=== PATIENT | female | born 1960 | race Caucasian/White ===

== ENCOUNTER 2016-06-07 05:20 | Emergency (ER) | payer MEDICARE, MEDICAID ==
[2016-06-07 05:45] VITALS: BP 121/78
== END 2016-06-07 05:45 | disposition left against medical advice (07) ==
LOC: ER 05:20
DX: Z53.21 Procedure and treatment not carried out due to patient leaving prior to being seen by health care provider (principal)

== ENCOUNTER 2016-10-13 12:25 | Emergency (ER) | payer MEDICARE, MEDICAID ==
[2016-10-13] MEDS ORDERED: HYDROMORPHONE HCL INJ/PF 2 MG/ML AMPULE IV ONE (12:46)
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
[2016-10-13 14:17] LABS: ABSOLUTE EOSINOPHILS # (AUTO) 0.3 10^3/uL (0.0-0.6); ABSOLUTE LYMPHOCYTES (AUTO) 2.1 10^3/uL (0.5-4.7); ABSOLUTE MONOCYTES (AUTO) 0.4 10^3/uL (0.1-1.4); ABSOLUTE NEUT (AUTO) 3.3 10^3/uL (1.7-8.2); BASOPHILS % (AUTO) 0.7 % (0-2); EOSINOPHILS % (AUTO) 4.9 % (0-6); HEMATOCRIT 36.5 % (36.0-47.0); HGB HCT DIFFERENCE -0.5; LYMPHOCYTES % (AUTO) 34.4 % (13-45); MEAN CORPUSCULAR HEMOGLOBIN 27.2 pg (27.0-33.4); MEAN CORPUSCULAR HGB CONC 32.9 g/dL (32.0-36.0); MEAN CORPUSCULAR VOLUME 83 fl (80-97); RED BLOOD COUNT 4.42 10^6/uL (3.72-5.28); RED CELL DISTRIBUTION WIDTH 15.7 % (11.5-14.0); WHITE BLOOD COUNT 6.2 10^3/uL (4.0-10.5)
[2016-10-13 14:39] LABS: ALANINE AMINOTRANSFERASE 27 U/L (9-52); ALBUMIN 3.9 g/dL (3.5-5.0); ALKALINE PHOSPHATASE 69 U/L (38-126); ANION GAP 9 (5-19); ASPARTATE AMINO TRANSFERASE 20 U/L (14-36); BILIRUBIN,DIRECT 0.4 mg/dL (0.0-0.4); BILIRUBIN,TOTAL 0.5 mg/dL (0.2-1.3); BLOOD UREA NITROGEN 14 mg/dL (7-20); CALCIUM 9.4 mg/dL (8.4-10.2); CARBON DIOXIDE 27 mmol/L (22-30); CHLORIDE 104 mmol/L (98-107); CREATININE RESULT 0.97 mg/dL (0.52-1.25); GLUCOSE 111 mg/dL (75-110); POTASSIUM 4.4 mmol/L (3.6-5.0); SODIUM 140.4 mmol/L (137-145); TOTAL PROTEIN 6.7 g/dL (6.3-8.2)
[2016-10-13] MEDS ORDERED: NORMAL SALINE 1000 ML 1,000 ML IV PRN (14:57)
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
[2016-10-13 19:46] VITALS: BP 106/68
== END 2016-10-13 17:50 | disposition home or self-care (01) ==
LOC: ER 12:25
DX: R07.81 Pleurodynia (principal); W19.XXXA Unspecified fall, initial encounter; Y92.009 Unspecified place in unspecified non-institutional (private) residence as the place of occurrence of the external cause; R05 Cough; J44.9 Chronic obstructive pulmonary disease, unspecified; R06.02 Shortness of breath; R11.2 Nausea with vomiting, unspecified; R19.7 Diarrhea, unspecified; E10.9 Type 1 diabetes mellitus without complications; R29.6 Repeated falls; I10 Essential (primary) hypertension; F17.200 Nicotine dependence, unspecified, uncomplicated; D68.2 Hereditary deficiency of other clotting factors; Z79.01 Long term (current) use of anticoagulants; Z88.8 Allergy status to other drugs, medicaments and biological substances; Z88.6 Allergy status to analgesic agent; Z88.5 Allergy status to narcotic agent
CPT/HCPCS: 99284; 96361; 96374; 36415; 85025; 80053; 71275; J1170; J7030

== ENCOUNTER 2017-02-22 20:08 | Emergency (ER) | payer OTHER, MEDICARE, MEDICAID ==
[2017-02-22] MEDS ORDERED: ONDANSETRON 4 MG TAB.RAPDIS PO ONE (20:55)
[2017-02-22] MEDS ORDERED: ACETAMINOPHEN 325 MG TABLET PO ONE (20:55)
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
[2017-02-22] MEDS ORDERED: OXYCODONE HCL IR 5 MG TABLET PO ONE (22:19)
[2017-02-22 22:48] VITALS: BP 109/70
== END 2017-02-22 22:48 | disposition home or self-care (01) ==
LOC: ER 20:08
DX: M54.2 Cervicalgia (principal); R51 Headache; M79.602 Pain in left arm; V49.40XA Driver injured in collision with unspecified motor vehicles in traffic accident, initial encounter; M79.7 Fibromyalgia; D68.51 Activated protein C resistance; I10 Essential (primary) hypertension; J44.9 Chronic obstructive pulmonary disease, unspecified; E10.9 Type 1 diabetes mellitus without complications; F41.9 Anxiety disorder, unspecified; Z79.01 Long term (current) use of anticoagulants; Z88.8 Allergy status to other drugs, medicaments and biological substances; Z88.6 Allergy status to analgesic agent; Z88.5 Allergy status to narcotic agent
CPT/HCPCS: 99284; 73060; 70450; 72125; S0119

== ENCOUNTER 2018-08-06 12:58 | Emergency (ER) | payer MEDICAID, MEDICARE ==
[2018-08-06] MEDS ORDERED: LACTULOSE SYRUP 20 GM/30 ML UDCUP PO ONE (13:19)
--- NOTE | 2018-08-06 13:21 | ER Document Report ---
ED Medical Screen (RME) - General Chief Complaint: Rectal Bleeding Stated Complaint: RECTAL BLEEDING Time Seen by Provider: 08/06/18 13:13 Primary Care Provider: KAMALA NEWBY MD [Primary Care Provider] - Follow up as needed Notes: 57-year-old female to the emergency department chief complaint of left-sided weakness, abnormal feeling in her head, constipation and rectal bleeding. Patient states that she thinks she had a stroke 2 weeks ago but has not been seen. Patient is on blood thinners for factor V Leiden and previous DVTs. I have greeted and performed a rapid initial assessment of this patient. A c omprehensive ED assessment and evaluation of the patient, analysis of test results and completion of the medical decision making process will be conducted by additional ED providers. TRAVEL OUTSIDE OF THE [place] IN LAST 30 DAYS: No - Related Data Allergies/Adverse Reactions: lithium [[facility]] Allergy (Unknown, Verified 08/06/18 13:00) atorvastatin calcium [From Lipitor] Allergy (Verified 08/06/18 13:00) bupropion HCl [From Wellbutrin] Allergy (Verified 08/06/18 13:00) fluoxetine HCl [From Prozac] Allergy (Verified 08/06/18 13:00) ibuprofen [From Motrin] Allergy (Verified 08/06/18 13:00) ketorolac tromethamine [From Toradol] Allergy (Verified 08/06/18 13:00) morphine [Morphine] Allergy (Verified 08/06/18 13:00) nalbuphine HCl [From Nubain] Allergy (Verified 08/06/18 13:00) simvastatin [From Zocor] Allergy (Verified 08/06/18 13:00) Past Medical History - Past Medical History Cardiac Medical History: Reports: Hx Hypercholesterolemia, Hx Hypertension Pulmonary Medical History: Reports: Hx Asthma, Hx COPD Neurological Medical History: Denies: Hx Seizures Endocrine Medical History: Reports: Hx Diabetes Mellitus Type 1 Renal/ Medical History: Reports: Hx Kidney Stones. 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
--- NOTE | 2018-08-06 13:51 | RADIOLOGY REPORT (SQ) ---
EXAM DESCRIPTION: CT HEAD WITHOUT COMPLETED DATE/TIME: 08/06/2018 1:37 pm REASON FOR STUDY: left sided weakness x2wk COMPARISON: 02/22/2017 TECHNIQUE: Axial images acquired through the brain without intravenous contrast. Images reviewed wi th bone, brain and subdural windows. Additional sagittal and coronal reconstructions were generated. Images stored on PACS. All CT scanners at this facility use dose modulation, iterative reconstruction, and/or weight based d osing when appropriate to reduce radiation dose to as low as reasonably achievable (ALARA). [facility]: Dose Right [facility]: CareDose [facility]: Dose Right [facility]: Teradose 4D [facility]: Smart GoWorkaBit RADIATION DOSE: CT Rad equipment meets quality standard of care and radiation dose reduction techniq ues were employed. CTDIvol: 53.2 mGy. DLP: 964 mGy-cm. LIMITATIONS: None. FINDINGS: VENTRICLES: Normal size and contour. CEREBRUM: No masses. No hemorrhage. No midline shift. No evidence for acute infarction. Normal gra y/white matter differentiation. No areas of low density in the white matter. CEREBELLUM: No masses. No hemorrhage. No alteration of density. No evidence for acute infarction. EXTRAAXIAL SPACES: No fluid collections. No masses. ORBITS AND GLOBE: No intra- or extraconal masses. Normal contour of globe without masses. CALVARIUM: No fracture. PARANASAL SINUSES: Slight deviation of the nasal septum to the right of the midline. No fluid or mu cosal thickening. SOFT TISSUES: No mass or hematoma. OTHER: No other significant finding. IMPRESSION: 1. No significant interval changes since the prior study dated 02/22/2017. No acute int racranial abnormality. EVIDENCE OF ACUTE STROKE: NO. COMMENT: Quality ID # [id number]: Final reports with documentation of one or more dose reduction techniques (e.g., Automated exposure control, adjustment of the mA and/or kV according to patient size, use of iterative reconstruction technique) TECHNICAL DOCUMENTATION: JOB ID: [id number] [employer]- All Rights Reserved Reading location - IP/workstation name: [email or web address]
--- NOTE | 2018-08-06 13:58 | RADIOLOGY REPORT (SQ) ---
EXAM DESCRIPTION: ACUTE ABDOMEN SERIES COMPLETED DATE/TIME: 08/06/2018 1:46 pm REASON FOR STUDY: constipation, rectal bleedinng COMPARISON: Plain films of the abdomen dated 11/26/2007 NUMBER OF VIEWS: Three views. TECHNIQUE: Frontal chest, supine abdomen and upright/decubitus abdomen radiographic images acquired. LIMITATIONS: None. FINDINGS: CHEST: Lungs clear of infiltrates. FREE AIR: None. No abnormal gas collections. BOWEL GAS PATTERN: Nonobstructive pattern. Slightly dilated small bowel loops midline right hemipelv is. A few small air-fluid levels in the same location. CALCIFICATIONS: No suspicious calcifications. HARDWARE: Multiple surgical anchors midline pelvis, and fine wire surgical sutures in the right gisell pelvis. Multiple surgical metallic clips in the right mid and lower abdomen. SOFT TISSUES: No gross mass or suggestion of organomegaly. BONES: No acute fracture. Levoconvex scoliosis of the lumbar spine. No worrisome bone lesions. OTHER: No other significant finding. IMPRESSION: 1. No acute pulmonary findings. 2. Slightly dilated small bowel loops midline right hemipelvis with a few small air-fluid levels. T hese findings may be on the basis of an ileus. TECHNICAL DOCUMENTATION: JOB ID: [id number] [employer]- All Rights Reserved Reading location - IP/workstation name: [email or web address]
[2018-08-06 15:57] LABS: APPEARANCE,URINE CLOUDY; BILIRUBIN,URINE NEGATIVE (NEGATIVE); COLOR,URINE YELLOW; GLUCOSE, URINE NEGATIVE (NEGATIVE); KETONES,URINE NEGATIVE (NEGATIVE); LEUKOCYTE ESTERASE,URINE MODERATE (NEGATIVE); NITRITE,URINE NEGATIVE (NEGATIVE); PROTEIN,URINE NEGATIVE (NEGATIVE); URINE SPECIFIC GRAVITY 1.009; UROBILINOGEN,URINE NEGATIVE mg/dL (<2.0)
[2018-08-06 17:09] LABS: ABSOLUTE BASOPHILS # (AUTO) 0.1 10^3/uL (0.0-0.2); ABSOLUTE LYMPHOCYTES (AUTO) 2.1 10^3/uL (0.5-4.7); ABSOLUTE MONOCYTES (AUTO) 0.5 10^3/uL (0.1-1.4); ABSOLUTE NEUT (AUTO) 3.5 10^3/uL (1.7-8.2); BASOPHILS % (AUTO) 0.8 % (0-2); EOSINOPHILS % (AUTO) 0.5 % (0-6); HEMATOCRIT 40.1 % (36.0-47.0); HEMOGLOBIN 14.1 g/dL (12.0-15.5); LYMPHOCYTES % (AUTO) 34.8 % (13-45); MEAN CORPUSCULAR HEMOGLOBIN 28.6 pg (27.0-33.4); MEAN CORPUSCULAR HGB CONC 35.3 g/dL (32.0-36.0); MEAN CORPUSCULAR VOLUME 81 fl (80-97); MONOCYTES % (AUTO) 7.4 % (3-13); PLATELET COUNT 171 10^3/uL (150-450); RED BLOOD COUNT 4.95 10^6/uL (3.72-5.28); RED CELL DISTRIBUTION WIDTH 15.4 % (11.5-14.0); SEGMENTED NEUTROPHILS % (AUTO) 56.5 % (42-78); TOTAL CELLS COUNTED % (AUTO) 100 %; WHITE BLOOD COUNT 6.2 10^3/uL (4.0-10.5)
[2018-08-06 17:17] LABS: INTERNATIONAL RATION (INR) 1.33; PROTHROMBIN TIME 17.1 SEC (11.4-15.4)
[2018-08-06 17:18] LABS: PARTIAL THROMBOPLASTIN TIME 34.4 SEC (23.5-35.8)
[2018-08-06] MEDS ORDERED: NORMAL SALINE 1000 ML 1,000 ML IV ONE (17:19)
--- NOTE | 2018-08-06 17:22 | ER Document Report ---
ED General - General Chief Complaint: Rectal Bleeding Stated Complaint: RECTAL BLEEDING Time Seen by Provider: 08/06/18 13:13 Primary Care Provider: KAMALA NEWBY MD [Primary Care Provider] - Follow up as needed Notes: Patient is a 57-year-old female who presents to the emergency department with a chief complaint of rectal bleeding. Her symptoms started this morning. She was picking at her stool earlier today to help facilitate a bowel movement, and noticed she was bleeding from her rectum. She states that she was able to get some stool out, but not everything. She still feels impacted. About 2 weeks a go she was also feeling she had, "strokelike symptoms." She also states that she has had incontinence since that period of having "strokelike" symptoms. He denies any weakness, slurred speech, diplopia. She states that she has had some nausea, but no active vomiting. She is currently on Xarelto. She has history of hypertension, diabetes, and gangrene. TRAVEL OUTSIDE OF THE [place] IN LAST 30 DAYS: No - Related Data Allergies/Adverse Reactions: lithium [[place]] Allergy (Unknown, Verified 08/06/18 13:00) atorvastatin calcium [From Lipitor] Allergy (Verified 08/06/18 13:00) bupropion HCl [From Wellbutrin] Allergy (Verified 08/06/18 13:00) fluoxetine HCl [From Prozac] Allergy (Verified 08/06/18 13:00) ibuprofen [From Motrin] Allergy (Verified 08/06/18 13:00) ketorolac tromethamine [From Toradol] Allergy (Verified 08/06/18 13:00) morphine [Morphine] Allergy (Verified 08/06/18 13:00) nalbuphine HCl [From Nubain] Allergy (Verified 08/06/18 13:00) simvastatin [From Zocor] Allergy (Verified 08/06/18 13:00) Past Medical History - Social History Smoking Status: Current Every Day Smoker Family History: None Patient has suicidal ideation: No Patient has homicidal ideation: No - Past Medical History Cardiac Medical History: Reports: Hx Hypercholesterolemia, Hx Hypertension Pulmonary Medical History: Reports: Hx Asthma, Hx COPD Neurological Medical History: Denies: Hx Seizures Endocrine Medical History: Reports: Hx Diabetes Mellitus Type 1 Renal/ Medical History: Reports: Hx Kidney Stones. 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 Denies recent unintentional weight loss. Denies fever, chills, or sweats. EENT: Denies eye, ear, throat, or mouth pain, discharge, or symptoms. Denies nasal or sinus congestion. CARDIOVASCULAR: Denies chest pain. RESPIRATORY: Denies shortness of breath, cough, congestion, difficulty breathing, or wheezing. GASTROINTESTINAL: See HPI GENITOURINARY: Denies difficulty urinating, burning, blood in urine, urgency or frequency. MUSCULOSKELETAL: Denies neck and back pain. Denies joint pain or swelling. SKIN: Denies rash, itchiness, or lesions HEMATOLOGIC : Denies easy bruising or bleeding. LYMPHATIC: Denies swollen, painful, enlarged glands. NEUROLOGICAL: See HPI PSYCHIATRIC: Denies stress, anxiety, alteration in sleep patterns, or depression. All other systems reviewed and negative. Physical Exam - Vital signs Vitals: Temp Pulse Resp BP Pulse Ox 99.5 F 97 16 145/81 H 97 08/06/18 13:07 08/06/18 13:07 08/06/18 13:07 08/06/18 13:07 08/06/18 13:07 - Notes Notes: PHYSICAL EXAMINATION: GENERAL: Appears well, healthy, well-nourished, no acute distress. HEAD: Normocephalic, atraumatic. EYES: PERRL, conjunctiva normal, all extraocular movements intact, sclera nonicteric ENT: Moist mucous membranes. NECK: Supple, no noticeable swelling, redness, rash. Normal range of motion. LUNGS: Equal breath sounds bilaterally and clear to auscultation. No wheezes rales or rhonchi. CARDIOVASCULAR: S1-S2, regular rate, regular rhythm. Radial pulses 2+, normal. ABDOMEN: Normoactive bowel sounds. Soft, nontender, no guarding, no rebound tenderness, and no masses palpated. EXTREMITIES: Normal strength and range of motion, no pitting or edema. No c yanosis. NEUROLOGICAL: Moves all extremities upon command. Strength 5/5 in all extremities. PSYCH: Normal mood, normal affect. SKIN: Warm, dry. No rash, lesions, ulcerations noted. Normal skin turgor. Rectal: Stool noted. Hemorrhoids noted. Course - Re-evaluation Re-evalutation: 08/06/18 18:[address] Barr, the surgical list brush fabrication supervisor and he agrees that the patient does need an enema and the current regimen we are giving her is correct. I have discussed with the patient that she needs to increase fiber in her diet. She does have some a moderate amount of stool on her left leukocytes in her urine, I will treat her for urinary tract infection because she is having some confusion. This may be due to her incontinence for the past 2 weeks. Although her occult stool was positive, I visualized her stool after her enema and there were streaks of blood in her urine, suggestive of hemorrhoids. Her chemistry is unremarkable. She does not have she is not anemic. Her abdominal x-ray shows a possible ileus, but I suspect this is more constipation. Her CT of the head is negative for any acute findings. There is no comment on subacute/chronic changes. 08/06/18 19:[address] Newby in regards to the patient's case. He would like to see the patient in the office tomorrow. I have given instructions to the patient's neighbor, who is her transport truck driver. They both verbalized understanding. Verbal discharge instructions were given to the patient. They verbalized understanding. They are stable for discharge. - Vital Signs Vital signs: Temp Pulse Resp BP Pulse Ox 97.8 F 66 17 160/92 H 99 08/06/18 19:39 08/06/18 19:39 08/06/18 19:39 08/06/18 19:39 08/06/18 19:39 - Laboratory Result Diagrams: 08/06/18 16:58 08/06/18 16:58 Laboratory results interpreted by me: 08/06/18 08/06/18 08/06/18 15:22 16:58 16:58 RDW 15.4 H PT 17.1 H Potassium Chloride Calcium Urine Blood MODERATE H Ur Leukocyte Esterase MODERATE H 08/06/18 16:58 RDW PT Potassium 3.4 L Chloride 108 H Calcium 10.5 H Urine Blood Ur Leukocyte Esterase Discharge - Discharge Clinical Impression: Rectal bleeding Constipation Qualifiers: Constipation type: unspecified constipation type Qualified Code(s): K59.00 - Constipation, unspecified Urinary tract infection Qualifiers: Urinary tract infection type: acute cystitis Hematuria presence: with hematuria Qualified Code(s): N30.01 - Acute cystitis with hematuria Condition: Stable Disposition: HOME, SELF-CARE Additional Instructions: You were seen today in the emergency department for strokelike symptoms that happened about [address] Newby would like to see you in the office tomorrow. You also have had some bleeding from your rectum. Your exam is consistent with constipation and hemorrhoids. Please follow-up with Dr. Newby in regards to the this issue. Please take the constipation medications you are ready to take at home. Also, when you are financially able to add fiber to your diet, please eat more fruits and vegetables that are high in fiber to help you have normal bowel movements. You take MiraLAX, 1 capful every day to help with normal bowel movements. Do not eat white bread only anymore, as this makes constipation worse. You also have a urinary tract infection. You will be placed on antibiotics. Please take all your antibiotics as prescribed. If you have worsening symptoms, more constipation, continue to vomit, or have any symptoms that are worrisome to you, return to the emergency department. Prescriptions: Cephalexin [Keflex] 500 mg PO BID #14 capsule Referrals: KAMALA NEWBY MD [Primary Care Provider] - Follow up as needed
[2018-08-06 17:27] LABS: ALANINE AMINOTRANSFERASE 18 U/L (9-52); ALBUMIN 4.8 g/dL (3.5-5.0); ALKALINE PHOSPHATASE 56 U/L (38-126); ANION GAP 11 (5-19); ASPARTATE AMINO TRANSFERASE 21 U/L (14-36); BILIRUBIN,DIRECT 0.3 mg/dL (0.0-0.4); BILIRUBIN,TOTAL 0.5 mg/dL (0.2-1.3); BLOOD UREA NITROGEN 11 mg/dL (7-20); CALCIUM 10.5 mg/dL (8.4-10.2); CARBON DIOXIDE 24 mmol/L (22-30); CHLORIDE 108 mmol/L (98-107); GLUCOSE 104 mg/dL (75-110); POTASSIUM 3.4 mmol/L (3.6-5.0); SODIUM 142.8 mmol/L (137-145); TOTAL PROTEIN 7.2 g/dL (6.3-8.2)
--- NOTE | 2018-08-06 19:11 | EKG REPORT ---
SEVERITY:- BORDERLINE ECG - SINUS RHYTHM BORDERLINE T WAVE ABNORMALITIES : Confirmed by: Dora Novoa MD 06-Aug-2018 19:11:16
[2018-08-06 20:03] VITALS: BP 160/92
== END 2018-08-06 20:03 | disposition home or self-care (01) ==
LOC: ER 12:58
DX: K62.5 Hemorrhage of anus and rectum (principal); K59.00 Constipation, unspecified; N30.01 Acute cystitis with hematuria; K64.9 Unspecified hemorrhoids; R32 Unspecified urinary incontinence; R41.0 Disorientation, unspecified; R11.0 Nausea; I10 Essential (primary) hypertension; E10.9 Type 1 diabetes mellitus without complications; J44.9 Chronic obstructive pulmonary disease, unspecified; F17.200 Nicotine dependence, unspecified, uncomplicated; Z79.01 Long term (current) use of anticoagulants; Z88.8 Allergy status to other drugs, medicaments and biological substances; Z88.6 Allergy status to analgesic agent; Z88.5 Allergy status to narcotic agent
CPT/HCPCS: 93005; 99284; 36415; 85025; 85610; 85730; 80053; 81001; 74022; 70450; 93010; A9270; J7030

== ENCOUNTER → 2019-04-01 | Outpatient (CLI) | payer MEDICARE, MEDICAID ==
--- NOTE | 2019-04-01 16:38 | RADIOLOGY REPORT (SQ) ---
EXAM DESCRIPTION: KNEE RIGHT 2 VIEWS COMPLETED DATE/TIME: 04/01/2019 4:26 pm REASON FOR STUDY: RT KNEE PAIN M25.561 PAIN IN RIGHT KNEE COMPARISON: None. NUMBER OF VIEWS: Four views. TECHNIQUE: AP, lateral, and both oblique radiographic images acquired of the right knee. LIMITATIONS: None. FINDINGS: MINERALIZATION: Normal. BONES: No acute fracture or dislocation. No worrisome bone lesions. Tiny medial/ lateral and patell ofemoral osteophytes. JOINT: No effusion. SOFT TISSUES: No soft tissue swelling. No radio-opaque foreign body. OTHER: No other significant finding. IMPRESSION: NEGATIVE STUDY OF THE RIGHT KNEE. NO RADIOGRAPHIC EVIDENCE OF ACUTE INJURY. TECHNICAL DOCUMENTATION: JOB ID: [id number] [employer]- All Rights Reserved Reading location - IP/workstation name: [email or web address]
== END ==
LOC: OD 16:08
PROVIDERS: ATTEND Nurse Practitioner Family
DX: M25.561 Pain in right knee (principal)

== ENCOUNTER → 2019-11-05 | Outpatient (CLI) | payer MEDICARE, MEDICAID ==
--- NOTE | 2019-11-05 13:08 | ER RDC ASSESSMENT REPORT ---
Intake - In the Last 14 days Have you traveled outside [place]?: No Have you been in close contact with someone CONFIRMED: No Worked in Healthcare?: No - Symptoms Subjective Fever([place] feverish): Yes --How many day(s)?: Reports started a fever yesterday was told it was 100. None today Chills: No Muscule Aches: No Runny Nose: No Cough (New or worsening chronic cough): Yes --How many day(s)?: Has a chronic cough since May started to have wheezing HX COPD Shortness of breath: Yes Nausea or Vomiting: No Headache: Yes --How many day(s)?: Headache yesterday, gone today Abdominal Pain: No Diarrhea(3 or more loose stools in last 24 hours): No - Do you have any of the following Chronic lung disease: Asthma or emphysema or COPD: Yes Chronic Lung Disease Comment: Reports a history of COPD complains of a cough that has been persistent since May smokes uses 3 inhalers and a nebulizer. Attempted to be seen at commercial real estate agent yesterday Cystic Fibrosis: No Diabetes: Yes Diabetes Comment: Type II DM High Blood Pressure: Yes Cardiovascular Disease: Yes Chronic Kidney Disease: No Chronic Liver Disease: No Chronic blood disorder like Sickle Cell Disease: No Weak immune system due to disease or medication: No Neurologic condition that limits movement: No Developmental delay - Moderate to Severe: No Recent (within past 2 weeks) or current : No Morbid Obesity (>100 pounds over ideal weight): No Obesity Comment: Height 5 feet 5 inches weight 194 pounds Other Comment: Patient reports a history of hypertension arthritis fibromyalgia Crohn's disease bone spurs depression anxiety bipolar factor V blood disease - Objective Temperature: 99.0 F Pulse Rate: 76 Respiratory Rate: 20 Blood Pressure: 129/66 O2 Sat by Pulse Oximetry: 96 Objective: Given above, testing performed: If Testing Performed: Test Specimen Type Sent to General - General Information source: Patient Notes: Patient here today at [facility] for COVID testing. Reports has a history of a pe rsistent cough since May of last year reports smoker's cough sees a lung doctor attempted to reach out to him yesterday Dr. Malin due to increase in shortness of breath and wheezing. Reports commercial real estate agent thought perhaps had pneumonia requested patient to be screened for COVID testing first. Patient reports takes 3 inhalers and a nebulizer. Denies being in contact with any known positive COVID persons. - Related Data Allergies/Adverse Reactions: lithium [[place]] Allergy (Unknown, Verified 08/06/18 13:00) atorvastatin calcium [From Lipitor] Allergy (Verified 08/06/18 13:00) bupropion HCl [From Wellbutrin] Allergy (Verified 08/06/18 13:00) fluoxetine HCl [From Prozac] Allergy (Verified 08/06/18 13:00) ibuprofen [From Motrin] Allergy (Verified 08/06/18 13:00) ketorolac tromethamine [From Toradol] Allergy (Verified 08/06/18 13:00) morphine [Morphine] Allergy (Verified 08/06/18 13:00) nalbuphine HCl [From Nubain] Allergy (Verified 08/06/18 13:00) simvastatin [From Zocor] Allergy (Verified 08/06/18 13:00) Past Medical History - Social History Smoking Status: Current Every Day Smoker Cigarette use (# per day): Yes - Patient states smokes 10 cigarettes per day Smoking Education Provided: Yes - States this is only vice so genesis me. Not interested in quitting at this time Family History: None - Past Medical History Cardiac Medical History: Reports: Hx Hypercholesterolemia, Hx Hypertension Pulmonary Medical History: Reports: Hx Asthma, Hx COPD Neurological Medical History: Denies: Hx Seizures Endocrine Medical History: Reports: Hx Diabetes Mellitus Type 1 Renal/ Medical History: Reports: Hx Kidney Stones. Denies: Hx Peritoneal D ialysis Psychiatric Medical History: Reports: Hx Depression Past Surgical History: Reports: Hx Abdominal Surgery - appendix ruptured, gangrene in abdomen, part of intestine removed, Hx Hysterectomy Physical Exam - General General appearance: Appears well, Alert In distress: None Notes: PHYSICAL EXAMINATION: GENERAL: Well-appearing and in no acute distress. HEAD: Atraumatic, normocephalic. EYES: sclera anicteric, conjunctiva are normal. ENT: nares patent. Moist mucous membranes. NECK: Normal range of motion, supple without lymphadenopathy LUNGS: CTAB and equal. No wheezes rales or rhonchi. Resp even and unlabored. faint expiratory wheeze posterior bilateral Improved with cough. Noted moist non productive cough. HEART: Regular rate and rhythm without murmurs ABDOMEN: Soft, nontender, normal bowel sounds, no guarding. EXTREMITIES: No cyanosis. NEUROLOGICAL: Cranial nerves grossly intact. Normal speech. Normal gait. PSYCH: Normal mood, normal affect. SKIN: Warm, Dry, normal turgor, - Respiratory Respiratory status: No respiratory distress Breath sounds: Nonproductive cough, Wheezing Diagnostic Results Laboratory Results: Patient informed of negative rapid strep and negative rapid flu results. pending strep culture pending COVID testing results. Patient provided instructions regarding COVID to include: As a person under investigation for Covid 19, the [facility] of Health and Human Services, division of public health advises you to adhere to the following guidance until your test results are reported to you. If your test result is positive, you will receive additional information from your provider and your local health department at that time. Remain at home until you are cleared by the health provider or public health authorities. Keep a log of visitors to your home, notify any visitors to your home of your isolation status. If you plan to move to a new address or leave the [facility], notify the local health department in your County. Call your doctor or seek care if you have an urgent medical need. Before seeking medical care, call ahead to get instructions from the provider before arriving at the medical office clinic or hospital. Notify them that you are being tested for the virus that causes Covid 19 so that arrangements can be made, as necessary, to prevent transmission to others in the healthcare setting. Next, notify the local health department in your county. If a medical emergency arises and you need to call 911, inform the first respon ders that you are being tested for the virus that causes Covid 19. Next, notify the local health department in your [facility]. Patient Education/Counseling Counseling/Education: Patient presents with upper respiratory symptoms worrisome for possible Covid 19. Patient does not have emergency worring symptoms such as difficulty breathing, shortness of breath, chest pain, pressure, confusion or cyanosis. Patient appears suitable for discharge. patient to follow up today with PCP Dr. Santos and commercial real estate agent Dr. Malin today. To ED for persistent or worsening symptoms. patient's vital signs are stable and patient is nontoxic in appearance. Good return precautions have been discussed with patient, patient verbalized understanding and is agreeable with discharge plan of care at this time. RDC Discharge - Discharge Clinical Impression: COVID - 19 SCREENING Upper respiratory infection Qualifiers: URI type: unspecified URI Qualified Code(s): J06.9 - Acute upper respiratory infection, unspecified Condition: Stable Disposition: Home; Selfcare
[2019-11-05 13:21] LABS: A TYPE INFLUENZA AG NEGATIVE (NEGATIVE); B INFLUENZA AG NEGATIVE (NEGATIVE)
[2019-11-05 13:46] VITALS: BP 129/66
== END ==
LOC: RDC 12:20
PROVIDERS: ATTEND Nurse Practitioner Family
DX: Z20.828 Contact with and (suspected) exposure to other viral communicable diseases (principal); J06.9 Acute upper respiratory infection, unspecified; R50.9 Fever, unspecified; R05 Cough; R06.02 Shortness of breath; R51 Headache; J44.9 Chronic obstructive pulmonary disease, unspecified; I10 Essential (primary) hypertension; E11.9 Type 2 diabetes mellitus without complications; M79.7 Fibromyalgia; K50.90 Crohn's disease, unspecified, without complications; M13.80 Other specified arthritis, unspecified site; F31.9 Bipolar disorder, unspecified; D68.51 Activated protein C resistance; F17.210 Nicotine dependence, cigarettes, uncomplicated
CPT/HCPCS: 36415; 87070; 87880; 87804; U0003; C9803; 87635

== ENCOUNTER → 2019-11-10 | Outpatient (CLI) | payer MEDICARE, MEDICAID ==
--- NOTE | 2019-11-11 13:10 | RADIOLOGY REPORT (SQ) ---
EXAM DESCRIPTION: ARTERIAL LOWER EXTREM BILAT IMAGES COMPLETED DATE/TIME: 11/10/2019 3:42 pm REASON FOR STUDY: PVD E11.59 TYPE 2 DIABETES MELLITUS WITH OTH CIRCULATORY COMPLIC COMPARISON: None. TECHNIQUE: Dynamic and static tillman scale and color images acquired of the lower extremity arteries. Additional selected spectral images recorded. LIMITATIONS: None. FINDINGS: RIGHT LEG: CAFETERIA DIRECTOR PSV: 150 cm/s. Proximal Profunda Femoris: 90 cm/s. SFA PSV: 80-90 cm/s. Popliteal PSV: 80 cm/s. PLASTIC PRODUCTION MACHINE SETTER PSV: 90 cm/s. JOMAR PSV: 40 cm/s. DP PSV: 40 cm/s at the level of the ankle and 20 cm/s at the level of the toes. There are multiphasic spectral waveforms throughout the right lower extremity without a focal stenosi s or aneurysm. In the dorsalis pedis, at the level of the toes, there is retrograde flow. There is no abnormality on the color Doppler. LEFT LEG: CAFETERIA DIRECTOR PSV: 130 cm/s. Proximal Profunda Femoris: 100 cm/s. SFA PSV: 90-130 cm/s. Popliteal PSV: 80 cm/s. PLASTIC PRODUCTION MACHINE SETTER PSV: 110 cm/s. JOMAR PSV: 60 cm/s. DP PSV: 50 cm/s. There are triphasic spectral waveforms throughout the left lower extremity without a focal stenosis o r aneurysm. There is no abnormality on the color Doppler. IMPRESSION: NO HEMODYNAMICALLY SIGNIFICANT STENOSIS. TECHNICAL DOCUMENTATION: JOB ID: [id number] [employer]- All Rights Reserved Reading location - IP/workstation name: [email or web address]
== END ==
LOC: RAD 13:32
PROVIDERS: ATTEND Podiatrist Foot Surgery
DX: E11.59 Type 2 diabetes mellitus with other circulatory complications (principal); I73.9 Peripheral vascular disease, unspecified
CPT/HCPCS: 93925

== ENCOUNTER → 2019-11-13 | Outpatient (CLI) | payer MEDICARE, MEDICAID ==
[2019-11-13 12:11] LABS: ABSOLUTE EOSINOPHILS # (AUTO) 0.3 10^3/uL (0.0-0.6); ABSOLUTE LYMPHOCYTES (AUTO) 1.7 10^3/uL (0.5-4.7); ABSOLUTE MONOCYTES (AUTO) 0.5 10^3/uL (0.1-1.4); ABSOLUTE NEUT (AUTO) 4.5 10^3/uL (1.7-8.2); BASOPHILS % (AUTO) 0.4 % (0-2); EOSINOPHILS % (AUTO) 4.2 % (0-6); HEMOGLOBIN 12.8 g/dL (12.0-15.5); LYMPHOCYTES % (AUTO) 24.5 % (13-45); MEAN CORPUSCULAR HEMOGLOBIN 27.6 pg (27.0-33.4); MEAN CORPUSCULAR HGB CONC 33.8 g/dL (32.0-36.0); MEAN CORPUSCULAR VOLUME 82 fl (80-97); MONOCYTES % (AUTO) 6.7 % (3-13); PLATELET COUNT 185 10^3/uL (150-450); RED BLOOD COUNT 4.65 10^6/uL (3.72-5.28); RED CELL DISTRIBUTION WIDTH 15.8 % (11.5-14.0); SEGMENTED NEUTROPHILS % (AUTO) 64.2 % (42-78); TOTAL CELLS COUNTED % (AUTO) 100 %; WHITE BLOOD COUNT 6.9 10^3/uL (4.0-10.5)
[2019-11-13 12:31] LABS: ALBUMIN 4.3 g/dL (3.5-5.0); ALKALINE PHOSPHATASE 60 U/L (38-126); ANION GAP 10 (5-19); ASPARTATE AMINO TRANSFERASE 26 U/L (14-36); BILIRUBIN,TOTAL 0.3 mg/dL (0.2-1.3); BLOOD UREA NITROGEN 15 mg/dL (7-20); CALCIUM 9.9 mg/dL (8.4-10.2); CARBON DIOXIDE 20 mmol/L (22-30); CHLORIDE 108 mmol/L (98-107); GLUCOSE 114 mg/dL (75-110); POTASSIUM 4.4 mmol/L (3.6-5.0); TOTAL PROTEIN 7.2 g/dL (6.3-8.2)
--- NOTE | 2019-11-13 13:26 | RADIOLOGY REPORT (SQ) ---
EXAM DESCRIPTION: CHEST PA/LATERAL IMAGES COMPLETED DATE/TIME: 11/13/2019 11:51 am REASON FOR STUDY: COUGH,UNSPECIFIED ASTHMA, UNCOMPLICATED,SEE ORDER COMPARISON: 06/08/2014 EXAM PARAMETERS: NUMBER OF VIEWS: two views TECHNIQUE: Digital Frontal and Lateral radiographic views of the chest acquired. RADIATION DOSE: NA LIMITATIONS: none FINDINGS: LUNGS AND PLEURA: No opacities, masses or pneumothorax. No pleural effusion. MEDIASTINUM AND HILAR STRUCTURES: No masses or contour abnormalities. HEART AND VASCULAR STRUCTURES: Heart normal size. No evidence for failure. BONES: No acute findings. HARDWARE: None in the chest. OTHER: No other significant finding. IMPRESSION: NO SIGNIFICANT RADIOGRAPHIC FINDING IN THE CHEST. TECHNICAL DOCUMENTATION: JOB ID: [id number] 2010 [employer]- All Rights Reserved Reading location - IP/workstation name: [email or web address]
== END ==
LOC: OD 11:23
PROVIDERS: ATTEND Internal Medicine Critical Care Medicine
DX: M79.7 Fibromyalgia (principal); J45.909 Unspecified asthma, uncomplicated; F17.200 Nicotine dependence, unspecified, uncomplicated; R05 Cough; R06.01 Orthopnea; R53.83 Other fatigue; G47.30 Sleep apnea, unspecified; K74.60 Unspecified cirrhosis of liver; Z86.59 Personal history of other mental and behavioral disorders
CPT/HCPCS: 36415; 71046; 80053; 85025

== ENCOUNTER 2019-12-28 08:10 | Day surgery (SDC) | payer MEDICARE, MEDICAID ==
--- NOTE | 2019-12-23 12:04 | RADIOLOGY REPORT (SQ) ---
EXAM DESCRIPTION: CHEST PA/LATERAL IMAGES COMPLETED DATE/TIME: 12/23/2019 11:39 am REASON FOR STUDY: PREOP COMPARISON: 11/13/2019 EXAM PARAMETERS: NUMBER OF VIEWS: two views TECHNIQUE: Digital Frontal and Lateral radiographic views of the chest acquired. RADIATION DOSE: NA LIMITATIONS: none FINDINGS: LUNGS AND PLEURA: No opacities, masses or pneumothorax. No pleural effusion. MEDIASTINUM AND HILAR STRUCTURES: No masses or contour abnormalities. HEART AND VASCULAR STRUCTURES: Heart normal size. No evidence for failure. BONES: No acute findings. HARDWARE: None in the chest. OTHER: No other significant finding. IMPRESSION: NO SIGNIFICANT RADIOGRAPHIC FINDING IN THE CHEST. TECHNICAL DOCUMENTATION: JOB ID: [id number] 2010 [email or web address]- All Rights Reserved Reading location - IP/workstation name: [email or web address]
[2019-12-23 12:14] LABS: HEMATOCRIT 37.4 % (36.0-47.0); HEMOGLOBIN 12.7 g/dL (12.0-15.5); MEAN CORPUSCULAR HEMOGLOBIN 27.8 pg (27.0-33.4); MEAN CORPUSCULAR VOLUME 82 fl (80-97); PLATELET COUNT 160 10^3/uL (150-450); RED BLOOD COUNT 4.57 10^6/uL (3.72-5.28); RED CELL DISTRIBUTION WIDTH 15.5 % (11.5-14.0); WHITE BLOOD COUNT 8.1 10^3/uL (4.0-10.5)
[2019-12-23 12:32] LABS: ANION GAP 7 (5-19); BLOOD UREA NITROGEN 16 mg/dL (7-20); CALCIUM 9.8 mg/dL (8.4-10.2); CARBON DIOXIDE 24 mmol/L (22-30); CHLORIDE 107 mmol/L (98-107); GLUCOSE 100 mg/dL (75-110); POTASSIUM 4.7 mmol/L (3.6-5.0)
[2019-12-23 13:09] LABS: APPEARANCE,URINE CLEAR; BILIRUBIN,URINE NEGATIVE (NEGATIVE); COLOR,URINE YELLOW; GLUCOSE, URINE NEGATIVE (NEGATIVE); KETONES,URINE NEGATIVE (NEGATIVE); LEUKOCYTE ESTERASE,URINE LARGE (NEGATIVE); NITRITE,URINE NEGATIVE (NEGATIVE); PROTEIN,URINE NEGATIVE (NEGATIVE); URINE SPECIFIC GRAVITY 1.013; UROBILINOGEN,URINE NEGATIVE mg/dL (<2.0)
--- NOTE | 2019-12-24 09:17 | EKG REPORT ---
SEVERITY:- OTHERWISE NORMAL ECG - SINUS RHYTHM INTERPOLATED VENTRICULAR PREMATURE COMPLEX : Confirmed by: Izabela Oquendo 24-Dec-2019 09:16:18
[~2019-12-28 08:10] MED LIST: CEFAZOLIN 2 GM/D5W RTU 2 GM/50 ML RTUPB IV PRN; FENTANYL CITRATE INJ/PF 100 MCG/2 ML AMPUL ONE; KETAMINE HCL INJ 500 MG/10 ML VIAL ONE; LACTATED RINGERS 1000 ML IV PRN; LIDOCAINE 0.5% INJ-PF (5 MG/ML) 50 ML SDV SUBCUT PRN; MIDAZOLAM 2 MG/2 ML INJ ONE; PROPOFOL INJ 200 MG/20 ML VIAL IV ONE
[2019-12-28] MEDS ORDERED: CEFAZOLIN 2 GM/D5W RTU 2 GM/50 ML RTUPB IV ONE (08:39)
[2019-12-28 10:43] LABS: INTERNATIONAL RATION (INR) 0.97; PROTHROMBIN TIME 12.9 SEC (11.4-15.4)
[2019-12-28] MEDS ORDERED: LIDOCAINE 1%/EPINEPHRINE INJ 20 ML VIAL ONE ×2 (11:56→12:41)
[2019-12-28] MEDS ORDERED: BUPIVACAINE HCL 0.5 % INJ/PF 30 ML SDV ONE ×2 (11:56→12:41)
[2019-12-28] MEDS ORDERED: FENTANYL CITRATE INJ/PF 100 MCG/2 ML AMPUL IV PRN ×3 (12:38)
[2019-12-28] MEDS ORDERED: PROMETHAZINE HCL INJ 25 MG/1 ML VIAL IV PRN ×2 (12:38)
[2019-12-28] MEDS ORDERED: OXYCODONE-ACETAMINOPHEN 5-325 MG TABLET PO PRN ×3 (12:38→14:01)
[2019-12-28] MEDS ORDERED: MEPERIDINE HCL/PF INJ 25 MG/1 ML DISP.SYRIN IV PRN (12:38)
[2019-12-28] MEDS ORDERED: DIPHENHYDRAMINE HCL 50 MG/ML VIAL IV PRN (12:38)
--- NOTE | 2019-12-28 12:56 | Discharge Summary ---
Discharge Summary (SDC) - Discharge Final Diagnosis: Right lateral meniscal tear Date of Surgery: 12/28/19 Discharge Date: 12/28/19 Condition: Good Treatment or Instructions: Weightbearing as tolerated ambulation. Remove compressive wrap on Saturday. The OpSite dressing underneath this can be left in place until you return to the office. Once the compressive wrap is removed you may shower but please do not immerse it in a tub or pool. Prescriptions: Oxycodone HCl/Acetaminophen [Percocet 5-325 mg Tablet] 1 tab PO Q6 PRN #24 tablet PRN Reason: Referrals: KAMALA NEWBY MD [Primary Care Provider] - Discharge Diet: Regular Respiratory Treatments at Home: Deep Breathing/Coughing Discharge Activity: Balance Activity w/Rest, No tub bath Home Care Assistance: None Needed Report the Following to Your Physician Immediately: Shortness of Breath, Fever over 101 Degrees, Drainage-Foul Smelling
--- NOTE | 2019-12-28 12:58 | Operative Report ---
Operative Report DATE OF SURGERY: 12/28/19 PREOPERATIVE DIAGNOSIS: Right lateral meniscal tear POSTOPERATIVE DIAGNOSIS: Right lateral meniscal tear. Grade III chondromalacia the medial compartment. Intact ACL. Right lateral meniscal tear. Grade II chondromalacia lateral compartment. Grade I-II chondromalacia the patellofemoral compartment OPERATION: Arthroscopic right partial medial and lateral meniscectomies SURGEON: BRAULIO CARVALHO ANESTHESIA: LMAC ESTIMATED BLOOD LOSS: Minimal PROCEDURE: With the patient supine in the operating table the right lower extremities prepped and draped in a sterile fashion. The knee is insufflated with a combination of Marcaine, Xylocaine, and epinephrine. Subsequent medial lateral and patella portals are created for the introduction of the arthroscope and debridements mentation. The instruments are inserted and the joint examined in systematic fashion findings as above. Using combination of mechanical curettes, mechanical shaver, electric frequency ablation probe a lateral meniscectomies performed from approximately 6:00 to 12:00 on the face of the dial. Similarly a partial medial meniscectomy performed from approximately 3:00 to 12:00 in the face of the dial. The joint is again examined with no new findings. Instrumentation was removed. Portals reapproximated Strupp and nylon. A sterile compressive dressing was applied and patient was returned to the PACU in satisfactory condition.
[2019-12-28] MEDS ORDERED: FENTANYL CITRATE INJ/PF 100 MCG/2 ML AMPUL ONE (13:22)
[2019-12-28] MEDS ORDERED: OXYCODONE-ACETAMINOPHEN 5-325 MG TABLET ONE (14:08)
[2019-12-28 15:39] VITALS: BP 112/72
== END 2019-12-28 15:10 | disposition home or self-care (01) ==
LOC: OROUT 08:10
PROVIDERS: ATTEND Orthopaedic Surgery
DX: M23.303 Other meniscus derangements, unspecified medial meniscus, right knee (principal); M23.300 Other meniscus derangements, unspecified lateral meniscus, right knee; M22.41 Chondromalacia patellae, right knee; E11.9 Type 2 diabetes mellitus without complications; I10 Essential (primary) hypertension; M79.7 Fibromyalgia; I25.2 Old myocardial infarction; G89.4 Chronic pain syndrome; K74.60 Unspecified cirrhosis of liver; D68.2 Hereditary deficiency of other clotting factors; Z03.818 Encounter for observation for suspected exposure to other biological agents ruled out; Z79.899 Other long term (current) drug therapy; Z85.828 Personal history of other malignant neoplasm of skin; Z79.01 Long term (current) use of anticoagulants; Z86.14 Personal history of Methicillin resistant Staphylococcus aureus infection
CPT/HCPCS: 93005; 36415 ×2; 82962; 84132; 85027; 85610; 80048; 81001; 83036; 71046; 93010; 29880; U0003; J2250; J3490 ×3; J3010; A9270; J2704; J0690; C9803; 1400; 87635

== ENCOUNTER 2020-02-18 15:53 | Emergency (ER) | payer MEDICARE, MEDICAID ==
[2020-02-18] MEDS ORDERED: RINGERS SOLUTION,LACTATED 1,000 ML IV ONE (16:08)
--- NOTE | 2020-02-18 16:09 | ER Document Report ---
ED Medical Screen (RME) - General Chief Complaint: Blood Pressure Problem Stated Complaint: PASSING OUT/POSSIBLE LOW BP Time Seen by Provider: 02/18/20 16:02 Primary Care Provider: KAMALA NEWBY MD [Primary Care Provider] - Follow up as needed Mode of Arrival: Wheelchair Information source: Patient Notes: HPI; 59-year-old female presents to the emergency room after multiple syncopal episodes this past week. States she was seen by her primary care physician earlier today and was noted to have a blood pressure of 60/40. States they attempted to start an IV without success. She was referred to the emergency room for further evaluation. Denies any trauma or injury from the syncopal episodes. States she is not fallen or hit her head. PE: Alert and oriented x3. Mild distress noted. Lungs: Clear to auscultation without rales, rhonchi, wheezes. Heart: Regular rate rhythm without murmurs, rubs, gallops. I have greeted and performed a rapid initial assessment of this patient. A comprehensive ED assessment and evaluation of the patient, analysis of test results and completion of the medical decision making process will be conducted by additional ED providers. I have specifically instructed the patient or family members with the patient to immediately return to any nursing staff should anything change in the patient's condition or with their chief complaint. TRAVEL OUTSIDE OF THE [place] IN LAST 30 DAYS: No - Related Data Allergies/Adverse Reactions: latex Allergy (Intermediate, Verified 12/28/19 08:22) lithium [[place]] Allergy (Unknown, Verified 12/28/19 08:22) albuterol Allergy (Verified 12/28/19 08:22) aspirin Allergy (Verified 12/28/19 08:22) atorvastatin calcium [From Lipitor] Allergy (Verified 12/28/19 08:22) bupropion HCl [From Wellbutrin] Allergy (Verified 12/28/19 08:22) fluoxetine HCl [From Prozac] Allergy (Verified 12/28/19 08:22) ibuprofen [From Motrin] Allergy (Verified 12/28/19 08:22) ketorolac tromethamine [From Toradol] Allergy (Verified 12/28/19 08:22) morphine [Morphine] Allergy (Verified 12/28/19 08:22) nalbuphine HCl [From Nubain] Allergy (Verified 08/06/18 13:00) simvastatin [From Zocor] Allergy (Verified 08/06/18 13:00) Past Medical History - Past Medical History Cardiac Medical History: Reports: Hx Heart Attack - 2010, Hx Hypercholesterolemia Denies: Hx Coronary Artery Disease, Hx Hypertension Pulmonary Medical History: Reports: Hx Asthma, Hx Bronchitis, Hx COPD Denies: Hx Pneumonia Neurological Medical History: Reports: Hx Cerebrovascular Accident - 2019. Denies: Hx Seizures Endocrine Medical History: Reports: Hx Diabetes Mellitus Type 1 Renal/ Medical History: Reports: Hx Kidney Stones. Denies: Hx Peritoneal Dialysis Musculoskeltal Medical History: Reports Hx Arthritis Psychiatric Medical History: Reports: Hx Depression Past Surgical History: Reports: Hx Abdominal Surgery - appendix ruptured, gangrene in abdomen, part of intestine removed, Hx Hysterectomy - Immunizations Hx Diphtheria, Pertussis, Tetanus Vaccination: Yes Physical Exam - Vital signs Vitals: Temp Pulse Resp BP Pulse Ox 97.8 F 75 20 93/45 L 98 02/18/20 15:59 02/18/20 15:59 02/18/20 15:59 02/18/20 15:59 02/18/20 15:59 Course - Vital Signs Vital signs: Temp Pulse Resp BP Pulse Ox 97.8 F 75 20 93/45 L 98 02/18/20 15:59 02/18/20 15:59 02/18/20 15:59 02/18/20 15:59 02/18/20 15:59 Doctor's Discharge - Discharge Referrals: KAMALA NEWBY MD [Primary Care Provider] - Follow up as needed
--- NOTE | 2020-02-18 17:09 | RADIOLOGY REPORT (SQ) ---
EXAM DESCRIPTION: CT HEAD WITHOUT IMAGES COMPLETED DATE/TIME: 02/18/2020 3:37 pm REASON FOR STUDY: syncope COMPARISON: 08/06/2018. TECHNIQUE: Axial images acquired through the brain without intravenous contrast. Images reviewed wi th bone, brain and subdural windows. Additional sagittal and coronal reconstructions were generated. Images stored on PACS. All CT scanners at this facility use dose modulation, iterative reconstruction, and/or weight based d osing when appropriate to reduce radiation dose to as low as reasonably achievable (ALARA). [facility]: Dose Right [facility]: CareDose [facility]: Dose Right [facility]: Teradose 4D [facility]: Smart Ensequence RADIATION DOSE: CT Rad equipment meets quality standard of care and radiation dose reduction techniq ues were employed. CTDIvol: 53.2 mGy. DLP: 1044 mGy-cm. mGy. LIMITATIONS: None. FINDINGS: VENTRICLES: Normal size and contour. CEREBRUM: No masses. No hemorrhage. No midline shift. No evidence for acute infarction. Normal gra y/white matter differentiation. No areas of low density in the white matter. CEREBELLUM: No masses. No hemorrhage. No alteration of density. No evidence for acute infarction. EXTRAAXIAL SPACES: No fluid collections. No masses. ORBITS AND GLOBE: No intra- or extraconal masses. Normal contour of globe without masses. CALVARIUM: No fracture. PARANASAL SINUSES: No fluid or mucosal thickening. SOFT TISSUES: No mass or hematoma. OTHER: No other significant finding. IMPRESSION: NORMAL BRAIN CT WITHOUT CONTRAST. EVIDENCE OF ACUTE STROKE: NO. COMMENT: Quality ID # [id number]: Final reports with documentation of one or more dose reduction techniques (e.g., Automated exposure control, adjustment of the mA and/or kV according to patient size, use of iterative reconstruction technique) TECHNICAL DOCUMENTATION: JOB ID: [id number] 2010 [employer]- All Rights Reserved Reading location - IP/workstation name: [email or web address]
--- NOTE | 2020-02-18 17:10 | RADIOLOGY REPORT (SQ) ---
EXAM DESCRIPTION: CHEST SINGLE VIEW IMAGES COMPLETED DATE/TIME: 02/18/2020 3:40 pm REASON FOR STUDY: weakness COMPARISON: 12/23/2019 EXAM PARAMETERS: NUMBER OF VIEWS: One view. TECHNIQUE: Single frontal radiographic view of the chest acquired. RADIATION DOSE: NA LIMITATIONS: None. FINDINGS: LUNGS AND PLEURA: No opacities, masses or pneumothorax. No pleural effusion. MEDIASTINUM AND HILAR STRUCTURES: No masses. Contour normal. HEART AND VASCULAR STRUCTURES: Heart normal in size. Normal vasculature. BONES: No acute findings. HARDWARE: None in the chest. OTHER: No other significant finding. IMPRESSION: NO ACUTE RADIOGRAPHIC FINDING IN THE CHEST. TECHNICAL DOCUMENTATION: JOB ID: [id number] 2010 [employer]- All Rights Reserved Reading location - IP/workstation name: [email or web address]
[2020-02-18 17:23] LABS: ABSOLUTE EOSINOPHILS # (AUTO) 0.2 10^3/uL (0.0-0.6); ABSOLUTE LYMPHOCYTES (AUTO) 2.4 10^3/uL (0.5-4.7); ABSOLUTE MONOCYTES (AUTO) 0.5 10^3/uL (0.1-1.4); ABSOLUTE NEUT (AUTO) 4.3 10^3/uL (1.7-8.2); BASOPHILS % (AUTO) 0.5 % (0-2); EOSINOPHILS % (AUTO) 2.5 % (0-6); HEMATOCRIT 34.5 % (36.0-47.0); HEMOGLOBIN 11.9 g/dL (12.0-15.5); LYMPHOCYTES % (AUTO) 31.8 % (13-45); MEAN CORPUSCULAR HEMOGLOBIN 28.3 pg (27.0-33.4); MEAN CORPUSCULAR HGB CONC 34.6 g/dL (32.0-36.0); MEAN CORPUSCULAR VOLUME 82 fl (80-97); MONOCYTES % (AUTO) 7.2 % (3-13); PLATELET COUNT 160 10^3/uL (150-450); RED BLOOD COUNT 4.22 10^6/uL (3.72-5.28); RED CELL DISTRIBUTION WIDTH 15.3 % (11.5-14.0); TOTAL CELLS COUNTED % (AUTO) 100 %; WHITE BLOOD COUNT 7.5 10^3/uL (4.0-10.5)
[2020-02-18 17:45] LABS: ALBUMIN 4.6 g/dL (3.5-5.0); ALKALINE PHOSPHATASE 66 U/L (38-126); ANION GAP 10 (5-19); ASPARTATE AMINO TRANSFERASE 32 U/L (14-36); BILIRUBIN,DIRECT 0.4 mg/dL (0.0-0.4); BILIRUBIN,TOTAL 0.4 mg/dL (0.2-1.3); BLOOD UREA NITROGEN 33 mg/dL (7-20); CALCIUM 9.2 mg/dL (8.4-10.2); CARBON DIOXIDE 24 mmol/L (22-30); CHLORIDE 104 mmol/L (98-107); CREATINE KINASE 66 U/L (30-135); GLUCOSE 96 mg/dL (75-110); TOTAL PROTEIN 7.2 g/dL (6.3-8.2)
[2020-02-18 17:55] LABS: TROPONIN I < 0.012 ng/mL
--- NOTE | 2020-02-18 18:23 | EKG REPORT ---
SEVERITY:- ABNORMAL ECG - SINUS RHYTHM VENTRICULAR BIGEMINY : Confirmed by: Izabela Oquendo 18-Feb-2020 18:22:48
--- NOTE | 2020-02-18 21:17 | ER Document Report ---
ED General - General Chief Complaint: Syncope Stated Complaint: PASSING OUT/POSSIBLE LOW BP Time Seen by Provider: 02/18/20 16:02 Primary Care Provider: KAMALA NEWBY MD [Primary Care Provider] - Follow up as needed Mode of Arrival: Wheelchair TRAVEL OUTSIDE OF THE [place] IN LAST 30 DAYS: No - HPI Notes: Patient is a 59-year-old female with a history of HTN, DM, COPD and chronic back pain who presents with hypotensive episodes for the past week. Patient states episodes occur daily and she becomes SOB, , lightheaded, unsteady when walking, and has tunnel vision. She denies any syncopal episodes. Patient was seen by her PCP today where she was noted to be hypotensive. Her PCP instructed she stop her new HTN medication that she started 1.5 months ago and not to take her nightly clonidine. EMS was called and the patient was brought to the emergency department. Patient denies chest pain currently, but had chest pain three days ago which she took sublingual NTG for relief. Patient denies fever, abdominal pain, nausea, and vomiting. Patient reports she takes a lot of medications which include Lyrica, tramadol, clonidine, Ambien, and oxycodone. Patient has a history of ND that occurred 8 years ago. - Related Data Allergies/Adverse Reactions: latex Allergy (Intermediate, Verified 12/28/19 08:22) lithium [[place]] Allergy (Unknown, Verified 12/28/19 08:22) aspirin Allergy (Verified 12/28/19 08:22) atorvastatin calcium [From Lipitor] Allergy (Verified 12/28/19 08:22) bupropion HCl [From Wellbutrin] Allergy (Verified 12/28/19 08:22) fluoxetine HCl [From Prozac] Allergy (Verified 12/28/19 08:22) ibuprofen [From Motrin] Allergy (Verified 12/28/19 08:22) nalbuphine HCl [From Nubain] Allergy (Verified 08/06/18 13:00) simvastatin [From Zocor] Allergy (Verified 08/06/18 13:00) Past Medical History - General Information source: Patient - Social History Smoking Status: Current Every Day Smoker Frequency of alcohol use: None Drug Abuse: None Family History: None - Past Medical History Cardiac Medical History: Reports: Hx Heart Attack - 2009, Hx Hype rcholesterolemia Denies: Hx Coronary Artery Disease, Hx Hypertension Pulmonary Medical History: Reports: Hx Asthma, Hx Bronchitis, Hx COPD Denies: Hx Pneumonia Neurological Medical History: Reports: Hx Cerebrovascular Accident - 2019. Denies: Hx Seizures Endocrine Medical History: Reports: Hx Diabetes Mellitus Type 1 Renal/ Medical History: Reports: Hx Kidney Stones. Denies: Hx Peritoneal Di alysis Musculoskeletal Medical History: Reports Hx Arthritis Psychiatric Medical History: Reports: Hx Depression Past Surgical History: Reports: Hx Abdominal Surgery - appendix ruptured, gangrene in abdomen, part of intestine removed, Hx Hysterectomy - Immunizations Hx Diphtheria, Pertussis, Tetanus Vaccination: Yes Hx Pneumococcal Vaccination: 06/03/10 Review of Systems - Review of Systems Constitutional: No symptoms reported EENT: See HPI Cardiovascular: No symptoms reported Respiratory: See HPI Gastrointestinal: No symptoms reported Genitourinary: No symptoms reported Female Genitourinary: No symptoms reported Musculoskeletal: No symptoms reported Skin: No symptoms reported Hematologic/Lymphatic: No symptoms reported Neurological/Psychological: See HPI Physical Exam - Vital signs Vitals: Temp Pulse Resp BP Pulse Ox 97.8 F 75 20 93/45 L 98 02/18/20 15:59 02/18/20 15:59 02/18/20 15:59 02/18/20 15:59 02/18/20 15:59 - Notes Notes: PHYSICAL EXAMINATION: VITALS: Vitals reviewed. Hypotension noted . [place] vitals are within normal limits. GENERAL: Well-appearing, well-nourished and in no acute distress. HEAD: Atraumatic, normocephalic. EYES: Pupils equal round and reactive to light, extraocular movements intact, sclera anicteric, conjunctiva are normal. ENT: nares patent, oropharynx clear without exudates. Moist mucous membranes. NECK: Normal range of motion, supple without lymphadenopathy. LUNGS: Breath sounds clear to auscultation bilaterally and equal. No wheezes rales or rhonchi. HEART: Regular rate and rhythm without murmurs. ABDOMEN: Soft, nontender, normoactive bowel sounds. No guarding, no rebound. No masses appreciated. EXTREMITIES: Normal range of motion, no pitting or edema. No cyanosis. NEUROLOGICAL: No focal neurological deficits. Moves all extremities spontaneously and on command. PSYCH: Normal mood, normal affect. SKIN: Warm, Dry, normal turgor, no rashes or lesions noted. Course - Re-evaluation Re-evalutation: Patient is a 59-year-old female who presents with episodes of hypotension for the past week. On exam, patient is hypotensive with SBP ranging from 80-90s and MAPs in the low 50s. 2L IV NS bolus given with noted improvement in blood pressure. Orthostatic measurements normal with an improvement in BP with standing. Head CT and CXR negative. Creatinine mildly elevated at 1.72 but labwork otherwise unremarkable. UA shows moderate leukocyte esterase. Discussed results with patient. Patient will be discharged home with prompt follow up with her PCP as she had a noted improvement in her BP s/p IVF and orthostatics negative. Prescription for keflex given for treatment of UTI. Return precautions given. - Vital Signs Vital signs: Temp Pulse Resp BP Pulse Ox 98.7 F 84 14 124/76 100 02/19/20 04:02 02/19/20 04:02 02/19/20 04:02 02/19/20 04:02 02/19/20 04:02 - Laboratory Result Diagrams: 02/18/20 17:00 02/18/20 17:00 Laboratory results interpreted by me: 02/18/20 02/18/20 02/18/20 17:00 17:00 23:53 Hgb 11.9 L Hct 34.5 L RDW 15.3 H BUN 33 H Creatinine 1.72 H Est GFR ( Amer) 37 L Est GFR (MDRD) Non-Af 30 L Ur Leukocyte Esterase MODERATE H - Diagnostic Test Radiology reviewed: Reports reviewed Radiology results interpreted by me: Chest X-Ray 02/18/20 16:05 IMPRESSION: NO ACUTE RADIOGRAPHIC FINDING IN THE CHEST. Head CT 02/18/20 16:05 IMPRESSION: NORMAL BRAIN CT WITHOUT CONTRAST. EVIDENCE OF ACUTE STROKE: NO. - EKG Interpretation by Me Additional EKG results interpreted by me: Sinus rhythm with a pattern of ventricular bigeminy. Rate of 62. QTc 390. Left axis deviation. Flattened T waves in inferior leads. No ST segment changes in consecutive leads. Discharge - Discharge Clinical Impression: Hypotension Qualifiers: Hypotension type: unspecified hypotension type Qualified Code(s): I95.9 - Hypotension, unspecified Urinary tract infection Qualifiers: Urinary tract infection type: acute cystitis Hematuria presence: without hematuria Qualified Code(s): N30.00 - Acute cystitis without hematuria Condition: Stable Disposition: HOME, SELF-CARE Additional Instructions: Hypotension Your blood pressure is low. Low blood pressure can make you feel weak, lightheaded, and even make you pass out. Low blood pressure can be caused by dehydration or blood loss. Problems with the heart, kidneys, or blood vessels can cause hypotension. Certain medications can make your blood pressure abnormally low. Infection can lower blood pressure. In many cases, the person is totally healthy, but for unknown reasons, the blood pressure falls when they stand up. This is called benign orthostatic hypotension. The treatment of low blood pressure depends on the severity of the symptoms, and on the underlying cause. Sometimes it's not possible to identify a cause. At this time, it doesn't appear that the problem is serious enough to require hospitalization. Medicines that could be contributing to the problem can be withheld or reduced in dosage if your doctor approves. Get plenty of fluids. Eat a healthy diet. Be careful to stand up slowly. If you feel suddenly lightheaded or if your vision goes tillman, sit or lie down at once. Don't drive or operate machinery until the symptoms are under control. Return or call the doctor if you develop fainting or severe dizziness, severe weakness, problems with vision, chest pain, shortness of breath, fever, or confusion. Urinary Tract Infection Your evaluation indicates that you have a urinary tract infection. This is due to germs growing in the bladder. This is a common problem. This infection usually responds quickly to antibiotics. Your antibiotic should be taken exactly as prescribed. Drink plenty of fluids -- three to four quarts a day. Occasionally, a bladder anesthetic will be prescribed to help stop the feeling of urgency until the antibiotic has a chance to clear the infection. This may cause your urine to be dark orange. Certain urine infections require a culture. If the doctor obtained a culture, the results will be back in two days. You should call to see if a change in treatment is needed. A repeat urinalysis after you finish treatment is often recommended. The physician will let you know if further testing is required. Call the doctor if you develop fever, chills, flank pain, inability to urinate, or blood in the urine. Prescriptions: Cephalexin [Cephalexin 500 MG Tablet] 500 mg PO BID 7 Days #14 tablet Referrals: KAMALA NEWBY MD [Primary Care Provider] - Follow up as needed
[2020-02-18] MEDS ORDERED: NORMAL SALINE 1000 ML 1,000 ML IV ONE (22:12)
[2020-02-19 00:14] LABS: APPEARANCE,URINE CLEAR; BILIRUBIN,URINE NEGATIVE (NEGATIVE); COLOR,URINE YELLOW; GLUCOSE, URINE NEGATIVE (NEGATIVE); KETONES,URINE NEGATIVE (NEGATIVE); LEUKOCYTE ESTERASE,URINE MODERATE (NEGATIVE); NITRITE,URINE NEGATIVE (NEGATIVE); PROTEIN,URINE NEGATIVE (NEGATIVE); URINE SPECIFIC GRAVITY 1.011; UROBILINOGEN,URINE NEGATIVE mg/dL (<2.0)
[2020-02-19 04:04] VITALS: BP 124/76
== END 2020-02-19 04:02 | disposition home or self-care (01) ==
LOC: ER 15:53
DX: I95.9 Hypotension, unspecified (principal); N30.00 Acute cystitis without hematuria; F17.200 Nicotine dependence, unspecified, uncomplicated; I10 Essential (primary) hypertension; J44.9 Chronic obstructive pulmonary disease, unspecified; E10.9 Type 1 diabetes mellitus without complications; G89.29 Other chronic pain; M54.9 Dorsalgia, unspecified
CPT/HCPCS: 93005; 99285; 96360; 96361 ×2; 36415; 82553; 82550; 83735; 87070; 81001; 84484; 71045; 70450; 93010; J7030; J7120

== ENCOUNTER 2020-02-23 05:31 | Day surgery (SDC) | payer MEDICARE, MEDICAID ==
[2020-02-18 13:11] LABS: HEMATOCRIT 34.7 % (36.0-47.0); HEMOGLOBIN 11.9 g/dL (12.0-15.5); MEAN CORPUSCULAR HEMOGLOBIN 28.1 pg (27.0-33.4); MEAN CORPUSCULAR HGB CONC 34.3 g/dL (32.0-36.0); MEAN CORPUSCULAR VOLUME 82 fl (80-97); PLATELET COUNT 152 10^3/uL (150-450); RED BLOOD COUNT 4.25 10^6/uL (3.72-5.28); RED CELL DISTRIBUTION WIDTH 15.6 % (11.5-14.0); WHITE BLOOD COUNT 6.7 10^3/uL (4.0-10.5)
[2020-02-18 13:43] LABS: ANION GAP 12 (5-19); BLOOD UREA NITROGEN 33 mg/dL (7-20); CALCIUM 9.4 mg/dL (8.4-10.2); CARBON DIOXIDE 22 mmol/L (22-30); CHLORIDE 106 mmol/L (98-107); GLUCOSE 111 mg/dL (75-110); POTASSIUM 4.4 mmol/L (3.6-5.0)
[~2020-02-23 05:31] MED LIST changes: +CEFAZOLIN 2 GM/D5W RTU 2 GM/50 ML RTUPB IV ONE; -FENTANYL CITRATE INJ/PF 100 MCG/2 ML AMPUL ONE; -KETAMINE HCL INJ 500 MG/10 ML VIAL ONE; -MIDAZOLAM 2 MG/2 ML INJ ONE; -PROPOFOL INJ 200 MG/20 ML VIAL IV ONE
[2020-02-23] MEDS ORDERED: DEXAMETHASONE SOD PHOSPHATE INJ 4 MG/1 ML VIAL ONE (06:32)
[2020-02-23] MEDS ORDERED: FENTANYL CITRATE INJ/PF 100 MCG/2 ML AMPUL ONE (06:32)
[2020-02-23] MEDS ORDERED: MIDAZOLAM 2 MG/2 ML INJ ONE (06:32)
[2020-02-23] MEDS ORDERED: ONDANSETRON HCL INJ/PF 4 MG/2 ML SDV ONE (06:32)
[2020-02-23] MEDS ORDERED: PROPOFOL INJ 200 MG/20 ML VIAL IV ONE (06:33)
[2020-02-23 06:44] LABS: INTERNATIONAL RATION (INR) 1.85; PROTHROMBIN TIME 21.4 SEC (11.4-15.4)
[2020-02-23 06:45] LABS: PARTIAL THROMBOPLASTIN TIME 39.6 SEC (23.5-35.8)
[2020-02-23] MEDS ORDERED: KETOROLAC TROMETHAMINE INJ/PF 30 MG/1 ML SDV ONE (07:16)
[2020-02-23] MEDS ORDERED: BUPIVACAINE HCL 0.5 % INJ/PF 30 ML SDV ONE (07:16)
[2020-02-23] MEDS ORDERED: LIDOCAINE 1% INJ-PF (10 MG/ML) 30 ML SDV ONE (07:16)
[2020-02-23] MEDS ORDERED: EPINEPHRINE INJ/PF 1 MG/1 ML AMPULE ONE (07:17)
[2020-02-23] MEDS ORDERED: MORPHINE SULFATE 10 MG/ML INJ IV PRN ×3 (07:45→08:52)
[2020-02-23] MEDS ORDERED: OXYCODONE-ACETAMINOPHEN 5-325 MG TABLET PO PRN (07:45)
[2020-02-23] MEDS ORDERED: MEPERIDINE HCL/PF INJ 25 MG/1 ML DISP.SYRIN IV PRN (07:45)
[2020-02-23] MEDS ORDERED: DIPHENHYDRAMINE HCL 50 MG/ML VIAL IV PRN (07:45)
[2020-02-23] MEDS ORDERED: FENTANYL CITRATE INJ/PF 100 MCG/2 ML AMPUL IV PRN ×3 (07:45)
[2020-02-23] MEDS ORDERED: PROMETHAZINE HCL INJ 25 MG/1 ML VIAL IV PRN ×2 (07:45)
[2020-02-23] MEDS: FENTANYL CITRATE INJ/PF 100 MCG/2 ML AMPUL ONE ×2 (08:35→08:37)
--- NOTE | 2020-02-23 08:48 | Operative Report ---
Operative Report DATE OF SURGERY: 02/23/20 PREOPERATIVE DIAGNOSIS: Left lateral meniscus tear with associated mild to mode rate osteoarthritis. POSTOPERATIVE DIAGNOSIS: Left medial and lateral meniscus tear with diffuse tricompartmental severe osteoarthritis. OPERATION: Left knee arthroscopy, partial medial partial lateral meniscectomy, chondroplasty. SURGEON: DARIAN OWUSU JR ANESTHESIA: LMAC COMPLICATIONS: None ESTIMATED BLOOD LOSS: 20 cc PROCEDURE: DESCRIPTION OF THE PROCEDURE: The patient was placed supine on the operating room table. After the patient was placed under LMAC anesthesia, and appropriate timeout was performed. The patient was prepped and draped in the usual sterile fashion for arthroscopic surgery. The left lower extremity was then exsanguinated with the use of an Esmarch bandage and the tourniquet was inflated to 250 mmHg. The operation commenced with creation of the lateral portal with an 11 blade. The arthroscope was directed into the suprapatellar pouch with the knee held in extension. A systematic examination of the left knee was begun arthroscopically. The patellofemoral articulation was visualized and severe osteoarthritis with full-thickness cartilage loss as well as osteophyte formation was found. The medial gutter was entered. No loose bodies were identified. The medial compartment was then entered and the medial portal was established under direct visualization with a spinal needle. The arthroscopic probe was used to inspect the contents of the medial compartment. Full-thickness cartilage loss on both the tibial plateau as well as the femur was appreciated in patches, with associated areas of full-thickness fissuring and fibrillation of the cartilage which impeded vision of the meniscus. A suction shaver was introduced and a chondroplasty was performed in order to clean up the surface cartilage to a stable base as well as allow for further visualization of the meniscus. The meniscus was inspected and posterior softening at the mid periphery was found which was further probed and found to be a tear. The root was intact. A biter was used to remove unstable meniscus followed by a suction shaver to produce a clean meniscal rim. The notch was then visualized. The anterior cruciate ligament and PCL were found to be intact. The arthroscope was directed into the lateral compartment. Notch fat pad and ligamentum mucosum tissue were resected with a suction shaver in order to better visualize the lateral compartment. The meniscus was inspected with a probe and found to have a degenerative lateral border meniscus tear with superior and inferior leaflets. Subsequently the lateral femoral condyle and the lateral tibial plateau were inspected with a probe. Patchy full-thickness cartilage loss was appreciated with surrounding full-thickness fissuring and fibrillation. The lateral meniscus was resected to a stable base with a straight biter, followed by evacuation and further preparation with a suction shaver. At this point further visualization was difficult as the patient began to have a venous tourniquet. We proceeded to evaluate the knee for any loose bodies, both medial lateral gutters were inspected followed by evacuation of fluid, release of tourniquet. Local anesthetic was then injected through the trocar. The instruments were then removed. The portals were closed with 3-0 nylon and Xeroform and a light compressive dressing was applied. The tourniquet was deflated. The patient was awakened from anesthesia and was returned to the recovery room in stable condition. There were no complications.
[2020-02-23] MEDS ORDERED: DIPHENHYDRAMINE HCL 25 MG CAPSULE PO PRN (08:52)
[2020-02-23] MEDS ORDERED: ONDANSETRON 4 MG TAB.RAPDIS PO PRN (08:52)
[2020-02-23] MEDS ORDERED: DOCUSATE SODIUM 100 MG CAPSULE PO PRN (08:52)
[2020-02-23] MEDS ORDERED: TRANEXAMIC ACID INJ/PF 1,000 MG/10 ML SDV IV ONE (08:52)
[2020-02-23] MEDS ORDERED: NORMAL SALINE 1000 ML 1,000 ML IV PRN (08:52)
[2020-02-23] MEDS ORDERED: DEXAMETHASONE SOD PHOS INJ 10 MG/1 ML VIAL IV ONE (08:52)
[2020-02-23] MEDS ORDERED: TRAMADOL HCL 50 MG TABLET PO PRN (08:52)
[2020-02-23] MEDS ORDERED: ZOLPIDEM TARTRATE 5 MG TABLET PO PRN (08:52)
[2020-02-23] MEDS ORDERED: PANTOPRAZOLE SODIUM 20 MG TABLET.DR PO ONE (08:52)
[2020-02-23] MEDS ORDERED: OXYCODONE HCL IR 5 MG TABLET PO PRN ×4 (08:52)
--- NOTE | 2020-02-23 08:52 | Discharge Summary ---
Discharge Summary (SDC) - Discharge Final Diagnosis: Left knee severe tricompartmental osteoarthritis, medial meniscus tear, lateral meniscus tear Date of Surgery: 02/23/20 Discharge Date: 02/23/20 Forms: ASU Anesthesia D/C Instruction, Discharge POC-Surgical Service Treatment or Instructions: Patient is to be weightbearing as tolerated, may use crutches as needed They may leave the dressing in place for the next 3 to 5 days. After which they may remove their dressing and change as needed. Leakage may be present the dressing for up to 7 days which is normal. Swelling will be present for longer. She is to follow-up in the office in 10 days for further evaluation and suture removal Use pain medication as previously prescribed. Referrals: CHARY STANTON DO [ACTIVE STAFF] - Discharge Diet: As Tolerated Respiratory Treatments at Home: Deep Breathing/Coughing Discharge Activity: Activity As Tolerated, No Driving, Keep Legs Elevated, Slowly Increase Activity, No tub bath, Walk Frequently Adaptive Devices on Discharge: Axillary Crutches, Rolling Walker Report the Following to Your Physician Immediately: Shortness of Breath, Fever over 101 Degrees, Unusual Bleeding, Drainage-Yellow
[2020-02-23] MEDS ORDERED: ACETAMINOPHEN 325 MG TABLET PO SCH (09:00)
[2020-02-23] MEDS ORDERED: OXYCODONE HCL IR 5 MG TABLET ONE (09:12)
[2020-02-23] MEDS ORDERED: POLYETHYLENE GLYCOL 3350 POWDER 17 GM/1 PACKET PO SCH (10:00)
[2020-02-23] MEDS ORDERED: ASPIRIN 325 MG TABLET PO SCH (10:00)
[2020-02-23] MEDS ORDERED: GABAPENTIN 100 MG CAPSULE PO SCH (10:00)
[2020-02-23] MEDS ORDERED: CELECOXIB 200 MG CAPSULE PO SCH (10:00)
[2020-02-23 10:53] VITALS: BP 125/71
[2020-02-23] MEDS ORDERED: CEFAZOLIN 2 GM/D5W RTU 2 GM/50 ML RTUPB IV SCH (12:00)
[2020-02-23] MEDS ORDERED: KETOROLAC TROMETHAMINE INJ/PF 30 MG/1 ML SDV IV SCH (14:00)
== END 2020-02-23 10:15 | disposition home or self-care (01) ==
LOC: OROUT 05:31
PROVIDERS: ATTEND Orthopaedic Surgery
DX: M23.262 Derangement of other lateral meniscus due to old tear or injury, left knee (principal); M23.232 Derangement of other medial meniscus due to old tear or injury, left knee; M17.12 Unilateral primary osteoarthritis, left knee; I10 Essential (primary) hypertension; F17.210 Nicotine dependence, cigarettes, uncomplicated; J44.9 Chronic obstructive pulmonary disease, unspecified; E66.9 Obesity, unspecified; K21.9 Gastro-esophageal reflux disease without esophagitis; G89.4 Chronic pain syndrome; M79.7 Fibromyalgia; E11.51 Type 2 diabetes mellitus with diabetic peripheral angiopathy without gangrene; Z79.899 Other long term (current) drug therapy; Z79.01 Long term (current) use of anticoagulants; Z03.818 Encounter for observation for suspected exposure to other biological agents ruled out; Z79.1 Long term (current) use of non-steroidal anti-inflammatories (NSAID); Z86.14 Personal history of Methicillin resistant Staphylococcus aureus infection; Z85.828 Personal history of other malignant neoplasm of skin; Z85.41 Personal history of malignant neoplasm of cervix uteri
CPT/HCPCS: 36415 ×2; 82947; 85027; 85610; 85730; 80048; 29880; U0003; J2250; J3490 ×2; J1100; J0171; J3010; J1885; J2405; J2704; A9270; J0690; C9803; 1400; 87635

== ENCOUNTER → 2020-03-17 | Outpatient (CLI) | payer MEDICARE, MEDICAID ==
--- NOTE | 2020-03-17 16:06 | NEURO WORKBENCH EEG REPORT ---
EEG Report Patient: Tahira Vieira ID: [id number] Referring Doctor: Lucien Montoya Date: 03/17/2020 Reason for study: Evaluate Epileptiform activity Medications: Esomeprazole, pregabalin, metformin, trazodone, clonidine, buspirone, Ventolin, ondansetron, benztropine, zolpidem, linzess, fluticasone, Xarelto, oxycodone. History: This is a 59 year old female with a history of anxiety, diabetes, HTN, chronic back pain, depression, COPD, GERD, knee surgery, prior CA, prior stroke (2019), and sleep apnea. This EEG was requested for evaluation of epileptiform activity. EEG Interpretation: This EEG was recorded during wakefulness and drowsiness. The awake EEG is characterized by a well organized background with a well developed and reactive posterior dominant rhythm (PDR) of approximately 10 Hz. The remainder of the background consisted of low amplitude beta activity. The EEG is symmetric in amplitudes and frequencies. Photic stimulation resulted in photic driving, and there was no epileptiform activity elicited with photic stimulation. There were no epileptiform abnormalities (no sharp waves and no spikes). There were no seizures. The EKG showed some periods of an irregular rhythm with rates typically 70-85 beats per minute. EEG Impression: This EEG is within normal limits for age. There was no epileptiform activity or seizures. A single normal routine EEG does not rule out the possibility of epilepsy. If there is high clinical suspicion for epilepsy, then additional EEG evaluation should be considered with a sleep-deprived EEG or more prolonged EEG monitoring. Further cardiac evaluation should be considered for arrhythmia. INTERPRETING NEUROLOGIST: Gorge Chandler MD Board certified by the [place] [employer] in Neurology, Clinical Neurophysiology, and Sleep Medicine [facility]
== END ==
LOC: NEURO 13:00
PROVIDERS: ATTEND Pediatrics
DX: G40.909 Epilepsy, unspecified, not intractable, without status epilepticus (principal); F41.9 Anxiety disorder, unspecified; R26.89 Other abnormalities of gait and mobility; Z79.899 Other long term (current) drug therapy
CPT/HCPCS: 95819

== ENCOUNTER → 2020-04-22 | Outpatient (CLI) | payer MEDICARE, MEDICAID ==
--- NOTE | 2020-04-22 19:39 | EKG REPORT ---
SEVERITY:- ABNORMAL ECG - SINUS TACHYCARDIA VENTRICULAR BIGEMINY NONSPECIFIC T ABNORMALITIES, LATERAL LEADS : Confirmed by: Dora Novoa MD 22-Apr-2020 19:39:07
== END ==
LOC: NEURO 14:38
PROVIDERS: ATTEND Pediatrics
DX: R94.31 Abnormal electrocardiogram [ECG] [EKG] (principal); Z79.899 Other long term (current) drug therapy
CPT/HCPCS: 93005; 93010